=== PATIENT | male | born 1960 | race Two or more races ===

== ENCOUNTER → 2024-08-16 | Outpatient (CLI) | payer OTHER, SELFPAY ==
[2024-08-16 16:45] LABS: Thyroid Stimulating Hormone 1.83 uIU/mL (0.55-4.78)
[2024-08-24 06:34] LABS: ANA Screen, IFA POSITIVE (NEGATIVE); ANA Titer 1:40 titer
== END | disposition home or self-care (01) ==
PROVIDERS: PCP Internal Medicine; Referring Provider Specialist; Visit Provider Specialist
DX: R13.10 Dysphagia, unspecified (principal)
CPT/HCPCS: 36415; 84443; 86038

== ENCOUNTER 2024-10-07 10:00 | Day surgery (SDC) | payer OTHER, SELFPAY ==
[2024-10-07] VITALS (11 sets, daily range): BP systolic 142–176; BP diastolic 81–102; PULSE 69–77; RESP 14–21; TEMP 36.1–37; O2SAT 97–100; BMI 24.0
[2024-10-07] MEDS: SODIUM CHLORIDE 0.9% 500 ML 500 ML 20 ML IV (11:27)
[2024-10-07] MEDS: BENZOCAINE 20% (Hurricaine) SPRAY 1 DOSE TOP (11:27)
[2024-10-07] MEDS: fentaNYL CIT INJ 50 mCg/ML AMP 2ML (ASD USE ONLY) IVP (11:30)
[2024-10-07] MEDS: MIDAZOLAM INJ 1 MG/ML VIAL 2 ML (ASD USE ONLY) 2 MG IVP (11:30)
== END 2024-10-07 12:40 | disposition home or self-care (01) ==
PROVIDERS: PCP Internal Medicine; Referring Provider Specialist; Visit Provider Specialist
PROC: (CPT 43239; principal; 2024-10-07 11:00)
DX: K22.2 Esophageal obstruction (principal); K20.90 Esophagitis, unspecified without bleeding; K29.70 Gastritis, unspecified, without bleeding; K31.89 Other diseases of stomach and duodenum
CPT/HCPCS: 43248; 43249; 43239; C1726; C1769; J1200; J2250; J3010; J7999; A9270